=== PATIENT | male | born 1970 | race African-American/Black ===

== ENCOUNTER 2017-07-17 08:18 | Emergency (ER) | payer OTHER ==
[~2017-07-17] VITALS: Ht 177.8 cm; Wt 91.0 kg
[~2017-07-17 08:18] MED LIST: ALD50; ATOR20TA; CARV25TA47; DIGO0.12; DIGO0.25 PO; FURO-151; LOSA50TA3; POTA20TA82; WARF10TA21
[2017-07-17] MEDS ORDERED: SODIUM CHLORIDE 0.9% 1,000 ML IV ONE (09:30)
[2017-07-17] MEDS ORDERED: MECLIZINE 25MG TABLET PO ONE (09:30)
[2017-07-17 09:43] LABS: BASOPHILS % 0.6 % (0.0-2.0); EOSINOPHILS % 1.9 % (0.0-5.0); HEMOGLOBIN. 15.1 g/dL (14.0-18.0); LYMPHOCYTES % 23.8 % (20.0-50.0); MEAN CORPUSCULAR HEMOGLOBIN 31.8 pg (28.0-32.0); MEAN CORPUSCULAR VOLUME 92.8 fL (80.0-94.0); MEAN PLATELET VOLUME 7.6 fl (7.4-10.4); NEUTROPHILS % 59.7 % (40.0-76.0); PLATELET 128 x1000/uL (130-400); RED BLOOD CELL COUNT 4.74 mill/uL (4.7-6.1); RED CELL DISTRIBUTION WIDTH 13.8 % (11.6-14.6)
[2017-07-17 09:52] LABS: INR 2.8; PROTHROMBIN TIME 29.3 sec (9.4-11.6)
[2017-07-17 09:59] LABS: CARBON DIOXIDE 25 mEq/L (21-32); CHLORIDE 104 mEq/L (98-107); TROPONIN I < 0.02 ng/mL (0.00-0.04)
[2017-07-17 10:13] LABS: DIGOXIN 0.6 ng/mL (0.9-2.0)
[2017-07-17 12:27] VITALS: BP 106/66
== END 2017-07-17 12:53 | disposition home or self-care (01) ==
LOC: ER 10:13
DX: R42 Dizziness and giddiness (principal); I10 Essential (primary) hypertension; E78.00 Pure hypercholesterolemia, unspecified; Z79.01 Long term (current) use of anticoagulants
CPT/HCPCS: 36415; 71010; 80048; 80162; 84484; 85025; 85610; 93005; 96360; 99285; J7030; Z7610; J8597

== ENCOUNTER 2018-04-09 06:11 | Inpatient (IN) | payer OTHER ==
[2018-04-09] VITALS (7 sets, daily range): BP systolic 111–133; BP diastolic 73–93
[~2018-04-09] VITALS: Ht 177.8 cm; Wt 93.0 kg
[2018-04-09] MEDS ORDERED: DIGO125T82 PO (06:49)
[2018-04-09] MEDS ORDERED: RIVA10TA PO (06:49)
[2018-04-09] MEDS ORDERED: SACU1TAB PO (06:49)
[2018-04-09] MEDS ORDERED: TADA5TAB PO (06:49)
[2018-04-09 07:04] LABS: CHLORIDE 104 mEq/L (98-107); HEMATOCRIT 43.8 % (42.0-52.0); HEMOGLOBIN 15.2 g/dL (14.0-18.0); MEAN CORPUSCULAR HEMOGLOBIN 32.6 pg (28.0-32.0); MEAN CORPUSCULAR VOLUME 94.1 fL (80.0-94.0); PLATELET 106 x1000/uL (130-400); RED BLOOD CELL COUNT 4.66 mill/uL (4.7-6.1); RED CELL DISTRIBUTION WIDTH 13.7 % (11.6-14.6)
[2018-04-09 07:06] LABS: INR 1.3; PROTHROMBIN TIME 13.4 sec (9.4-11.6)
[2018-04-09] MEDS ORDERED: FENTANYL CITRATE/PF 50MCG/ML 2ML VIAL ONE ×2 (07:20→08:44)
[2018-04-09] MEDS ORDERED: NEOSTIGMINE METHYLSULFATE 1MG/ML 10 ML VIAL ONE (07:20)
[2018-04-09] MEDS ORDERED: MIDAZOLAM HCL 2 MG/2 ML VIAL ONE (07:20)
[2018-04-09] MEDS ORDERED: CEFAZOLIN SODIUM 1000MG/VIAL ONE (07:20)
[2018-04-09] MEDS ORDERED: PROPOFOL 200MG/20ML VIAL IV ONE (07:20)
[2018-04-09] MEDS ORDERED: ROCURONIUM BROMIDE 10MG/ML VIAL 5ML IV ONE ×2 (07:20→08:00)
[2018-04-09] MEDS ORDERED: GLYCOPYRROLATE 0.2 MG/ML 2ML VIAL ONE (07:20)
[2018-04-09] MEDS ORDERED: SUCCINYLCHOLINE CHLORIDE 200MG/10ML VIAL IV ONE (07:20)
[2018-04-09] MEDS ORDERED: ONDANSETRON HCL 4MG/2ML VIAL ONE ×2 (07:21→13:21)
[2018-04-09] MEDS ORDERED: EPHEDRINE SULFATE 50MG/ML VIAL ONE (07:21)
[2018-04-09] MEDS ORDERED: PHENYLEPHRINE HCL 10 MG/ML 1ML (IV VIAL) IV ONE ×2 (07:21→07:37)
[2018-04-09] MEDS ORDERED: GENTAMICIN/NS IRRIGATION 500 ML IR ONE (07:23)
[2018-04-09] MEDS ORDERED: GENTAMICIN SULF 40MG/ML 2ML VIAL ONE (07:23)
[2018-04-09] MEDS ORDERED: LIDOCAINE HCL 1% 20ML VIAL (Pyxis) INJ ONE (07:23)
[2018-04-09] MEDS ORDERED: IOHEXOL-300 100 ML BOTTLE ONE (07:36)
[2018-04-09] MEDS ORDERED: ETOMIDATE 2MG/ML 10ML VIAL IV ONE (07:37)
[2018-04-09] MEDS ORDERED: CEFAZOLIN 1000MG PREMIX 50 ML IV ONE ×2 (07:38→07:52)
[2018-04-09] MEDS ORDERED: ESMOLOL HCL 10MG/ML 10ML VIAL IV ONE (08:43)
[2018-04-09] MEDS: SPIRONOLACTONE 50MG TABLET PO SCH (09:00)
[2018-04-09] MEDS ORDERED: SODIUM CHLORIDE 0.9% 1,000 ML IV ONE (11:33)
[2018-04-09] MEDS ORDERED: HYDROMORPHONE HCL/PF 2MG/ML CPJ IV PRN (11:45)
[2018-04-09] MEDS: ONDANSETRON HCL 4MG/2ML VIAL IV PRN ×2 (12:54→13:20)
[2018-04-09] MEDS: HYDROCODONE/ACETAMINOPHEN 5/325MG TABLET PO PRN ×2 (15:21→21:22)
[2018-04-09] MEDS: LOSARTAN POTASSIUM 50 MG TABLET PO SCH (17:43)
[2018-04-09] MEDS ORDERED: DIGOXIN 125MCG TABLET PO SCH (18:00)
[2018-04-09] MEDS ORDERED: ATORVASTATIN CALCIUM 20MG TABLET PO SCH (21:00)
[2018-04-09] MEDS: CARVEDILOL 25MG TABLET PO SCH (21:21)
[2018-04-10] VITALS (9 sets, daily range): BP systolic 97–135; BP diastolic 60–96
[2018-04-10 07:17] LABS: BASOPHILS % 0.4 % (0.0-2.0); EOSINOPHILS % 0.8 % (0.0-5.0); HEMATOCRIT. 41.1 % (42.0-52.0); LYMPHOCYTES % 9.7 % (20.0-50.0); MEAN CORPUSCULAR HEMOGLOBIN 32.3 pg (28.0-32.0); MEAN CORPUSCULAR VOLUME 94.9 fL (80.0-94.0); MEAN PLATELET VOLUME 8.2 fl (7.4-10.4); NEUTROPHILS % 80.1 % (40.0-76.0); PLATELET 86 x1000/uL (130-400); RED BLOOD CELL COUNT 4.33 mill/uL (4.7-6.1); RED CELL DISTRIBUTION WIDTH 13.8 % (11.6-14.6)
[2018-04-10 07:31] LABS: CHLORIDE 104 mEq/L (98-107)
[2018-04-10] MEDS: SPIRONOLACTONE 50MG TABLET PO SCH (08:35)
[2018-04-10] MEDS: LOSARTAN POTASSIUM 50 MG TABLET PO SCH (08:36)
[2018-04-10] MEDS: CARVEDILOL 25MG TABLET PO SCH (08:36)
[2018-04-10] MEDS ORDERED: FUROSEMIDE 40MG TABLET PO SCH (09:00)
[2018-04-10] MEDS ORDERED: POTASSIUM CHLORIDE 20MEQ TABLET SR PO SCH (09:00)
[2018-04-10] MEDS ORDERED: RIVA20TA MT (12:06)
== END 2018-04-10 12:58 | disposition home or self-care (01) | DRG 224 ==
LOC: CCL 06:11 → 3WST 06:12
PROVIDERS: ADMIT Internal Medicine Clinical Cardiac Electrophysiology; ATTEND Internal Medicine Clinical Cardiac Electrophysiology
PROC: 02HL3KZ Insertion of Defibrillator Lead into Left Ventricle, Percutaneous Approach (ICD-10-PCS; 2018-04-09)
PROC: 0JH608Z Insertion of Defibrillator Generator into Chest Subcutaneous Tissue and Fascia, Open Approach (ICD-10-PCS; 2018-04-09)
PROC: 4A023N6 Measurement of Cardiac Sampling and Pressure, Right Heart, Percutaneous Approach (ICD-10-PCS; 2018-04-09)
PROC: 02H43KZ Insertion of Defibrillator Lead into Coronary Vein, Percutaneous Approach (ICD-10-PCS; 2018-04-09)
PROC: 0JPT0PZ Removal of Cardiac Rhythm Related Device from Trunk Subcutaneous Tissue and Fascia, Open Approach (ICD-10-PCS; 2018-04-09)
PROC: 4A033BC Measurement of Arterial Pressure, Coronary, Percutaneous Approach (ICD-10-PCS; 2018-04-09)
PROC: B5171ZZ Fluoroscopy of Left Subclavian Vein using Low Osmolar Contrast (ICD-10-PCS; principal; 2018-04-09 07:10)
DX: I47.2 Ventricular tachycardia (principal); I50.23 Acute on chronic systolic (congestive) heart failure; I42.0 Dilated cardiomyopathy; I87.1 Compression of vein; I27.29 Other secondary pulmonary hypertension; I44.7 Left bundle-branch block, unspecified; Z79.899 Other long term (current) drug therapy; Z79.01 Long term (current) use of anticoagulants
CPT/HCPCS: 33225; 33264; 36415; 71045; 75820; 80048; 85025; 85027; 85610; 85730; 93005; 93451; 93641; A4565; C1758; C1769; C1887; C1892; C1893; C1900; J0330; J0690; J1580; J1644; J2250; J2370; J2405; J2704; J2710; J3010; J3490; J7030; J7040; J7042; J7050; Q9967

== ENCOUNTER 2019-02-19 09:16 | Emergency (ER) | payer OTHER ==
[~2019-02-19] VITALS: Ht 177.8 cm; Wt 91.0 kg
[~2019-02-19 09:16] MED LIST changes: +DIGO125T82 PO; +SACU1TAB PO; +TADA5TAB PO; -WARF10TA21
[2019-02-19 11:25] VITALS: BP 102/72
== END 2019-02-19 11:35 | disposition home or self-care (01) ==
LOC: ER 09:16
DX: H10.9 Unspecified conjunctivitis (principal); I10 Essential (primary) hypertension
CPT/HCPCS: 99283

== ENCOUNTER 2020-12-04 09:07 | Emergency (ER) | payer OTHER ==
[~2020-12-04] VITALS: Ht 177.8 cm; Wt 86.4 kg
[~2020-12-04 09:07] MED LIST changes: +DIGO125T PO; -DIGO125T82 PO
[2020-12-04 09:37] VITALS: BP 112/98
[2020-12-04 10:14] LABS: BASOPHILS % 1.7 % (0.0-2.0); EOSINOPHILS % 2.4 % (0.0-5.0); HEMATOCRIT. 38.2 % (42.0-52.0); HEMOGLOBIN. 12.6 g/dL (14.0-18.0); LYMPHOCYTES % 21.9 % (20.0-50.0); MEAN CORPUSCULAR HEMOGLOBIN 31.9 pg (28.0-32.0); MONOCYTES % 13.1 % (2.0-8.0); NEUTROPHILS % 60.9 % (40.0-76.0); PLATELET 94 x1000/uL (130-400); RED BLOOD CELL COUNT 3.94 mill/uL (4.7-6.1); RED CELL DISTRIBUTION WIDTH 15.9 % (11.6-14.6)
[2020-12-04 10:21] LABS: CHLORIDE 105 mEq/L (98-107)
== END 2020-12-04 13:25 | disposition home or self-care (01) ==
LOC: ER 09:14
DX: J06.9 Acute upper respiratory infection, unspecified (principal); I50.9 Heart failure, unspecified; Z95.0 Presence of cardiac pacemaker; Z79.899 Other long term (current) drug therapy
CPT/HCPCS: 36415; 71045; 80053; 85025; 93005; 99285

== ENCOUNTER 2021-09-19 10:16 | Inpatient (IN) | payer OTHER ==
[~2021-09-19] VITALS: Ht 177.8 cm; Wt 93.6 kg
[~2021-09-19 10:16] MED LIST changes: -ALD50; +ALD50 PO; -ATOR20TA; +ATOR20TA PO; -CARV25TA47; +CARV25TA47 PO; -DIGO0.12; -DIGO0.25 PO; -FURO-151; +FURO-151 PO; -LOSA50TA3; +LOSA50TA3 PO; +METR500T MT; -POTA20TA82; +POTA20TA82 PO; +PROT40 MT; +RIVA10TA PO
[2021-09-19] MEDS ORDERED: SODIUM CHLORIDE 0.9% 1000ML BAG (SEPSIS BOLUS) IV ONE (11:00)
[2021-09-19] MEDS ORDERED: METRONIDAZOLE 500 MG PREMIX 100 ML IV ONE (11:00)
[2021-09-19] MEDS ORDERED: METRONIDAZOLE 500MG TABLET PO NR (11:15)
[2021-09-19 11:31] LABS: BASOPHILS % 1.1 % (0.0-2.0); EOSINOPHILS % 1.2 % (0.0-5.0); HEMATOCRIT. 42.5 % (42.0-52.0); HEMOGLOBIN. 13.7 g/dL (14.0-18.0); LYMPHOCYTES % 20.5 % (20.0-50.0); MEAN CORPUSCULAR VOLUME 98.9 fL (80.0-94.0); MEAN PLATELET VOLUME 8.9 fl (7.4-10.4); MONOCYTES % 10.1 % (2.0-8.0); NEUTROPHILS % 67.1 % (40.0-76.0); PLATELET 86 x1000/uL (130-400); RED BLOOD CELL COUNT 4.29 mill/uL (4.7-6.1); RED CELL DISTRIBUTION WIDTH 17.8 % (11.6-14.6)
[2021-09-19 11:42] LABS: CHLORIDE 110 mEq/L (98-107)
[2021-09-19] MEDS ORDERED: CEFTRIAXONE 1 G PREMIX 50 ML IV ONE (14:15)
[2021-09-19] MEDS ORDERED: MAGNESIUM/ALUMINUM HYDROXIDE/SIMETHICONE 30ML UDC PO PRN (15:45)
[2021-09-19] MEDS ORDERED: HYDROCODONE/ACETAMINOPHEN 5/325MG TABLET PO PRN (15:45)
[2021-09-19] MEDS ORDERED: DOCUSATE SODIUM 100MG CAPSULE PO PRN (15:45)
[2021-09-19] MEDS ORDERED: CLONIDINE 0.1MG TABLET PO PRN (15:45)
[2021-09-19] MEDS ORDERED: ONDANSETRON HCL 4MG/2ML INJ IV PRN (15:45)
[2021-09-19] MEDS ORDERED: DIPHENHYDRAMINE 50MG/ML VIAL IV PRN (15:45)
[2021-09-19] MEDS ORDERED: ACETAMINOPHEN 650MG SUPP PR PRN (15:45)
[2021-09-19] MEDS ORDERED: IPRATROPIUM/ALBUTEROL 0.5-3(2.5)MG/3ML NEB NEB PRN (15:45)
[2021-09-19] MEDS ORDERED: LORAZEPAM 0.5MG TABLET PO PRN (15:45)
[2021-09-19] MEDS ORDERED: ACETAMINOPHEN 325MG TABLET PO PRN (15:45)
[2021-09-19] MEDS ORDERED: NA PHOS,M-B/NA PHOS,DI-BA ENEMA 118ML PR PRN (15:45)
[2021-09-19] MEDS ORDERED: MORPHINE SULFATE 2 MG/ML CPJ (NOT FOR IM USE) IV PRN (15:45)
[2021-09-19 17:18] LABS: CLARITY URINE CLEAR (CLEAR); COLOR URINE ORANGE (YELLOW); KETONES URINE NEGATIVE (NEGATIVE); LEUKOCYTE ESTERASE URINE 1+ (NEGATIVE); NITRITE URINE POSITIVE (NEGATIVE); OCCULT BLOOD URINE NEGATIVE (NEGATIVE); PROTEIN URINE 3+ (NEGATIVE)
[2021-09-19] MEDS ORDERED: LEVOFLOXACIN 500MG PREMIX 100 ML IV SCH (18:30)
[2021-09-19 18:33] LABS: INR 2.3; PROTHROMBIN TIME 23.2 sec (9.6-11.0)
[2021-09-19] MEDS: DEXT 5%/0.45% NACL 1000ML 1,000 ML IV SCH (19:14)
[2021-09-19] MEDS: PANTOPRAZOLE SODIUM 40 MG/VIAL IV SCH (19:14)
[2021-09-19 21:53] VITALS: BP 124/55
[2021-09-19] MEDS ORDERED: METRONIDAZOLE 500 MG PREMIX 100 ML IV SCH (22:00)
[2021-09-19] MEDS: METRONIDAZOLE 500MG TABLET PO SCH (22:49)
[2021-09-19] MEDS: GUAIFENESIN 200MG/10ML SUGAR FREE UDC PO PRN (22:49)
[2021-09-19] MEDS ORDERED: NALOXONE HCL 0.4 MG/ML 1ML VIAL IV PRN (23:00)
[2021-09-19 23:39] VITALS: BP 118/84
[2021-09-20] VITALS (10 sets, daily range): BP systolic 92–122; BP diastolic 59–89
[2021-09-20 03:41] LABS: *AMPHETAMINES SCREEN URINE NEGATIVE (NEGATIVE); *BARBITURATES SCREEN URINE NEGATIVE (NEGATIVE); *BENZODIAZEPINES SCREEN URINE NEGATIVE (NEGATIVE); *COCAINE SCREEN URINE NEGATIVE (NEGATIVE); CANNABINOID URINE SCREEN NEGATIVE (NEGATIVE); METHADONE URINE SCREEN NEGATIVE (NEGATIVE); OPIATES URINE SCREEN PRESUMTIVE POSITIVE (NEGATIVE)
[2021-09-20 03:49] LABS: PHENCYCLIDINE URINE SCREEN NEGATIVE (NEGATIVE)
[2021-09-20] MEDS: METRONIDAZOLE 500MG TABLET PO SCH ×3 (05:02→21:03)
[2021-09-20 07:27] LABS: BASOPHILS % 1.1 % (0.0-2.0); EOSINOPHILS % 1.7 % (0.0-5.0); HEMATOCRIT. 37.4 % (42.0-52.0); HEMOGLOBIN. 12.2 g/dL (14.0-18.0); LYMPHOCYTES % 18.2 % (20.0-50.0); MEAN CORPUSCULAR HEMOGLOBIN 32.2 pg (28.0-32.0); MEAN CORPUSCULAR VOLUME 98.6 fL (80.0-94.0); MONOCYTES % 14.7 % (2.0-8.0); NEUTROPHILS % 64.3 % (40.0-76.0); PLATELET 83 x1000/uL (130-400); RED BLOOD CELL COUNT 3.79 mill/uL (4.7-6.1); RED CELL DISTRIBUTION WIDTH 16.8 % (11.6-14.6)
[2021-09-20 07:42] LABS: CHLORIDE 110 mEq/L (98-107)
[2021-09-20] MEDS: PANTOPRAZOLE SODIUM 40 MG/VIAL IV SCH (09:12)
[2021-09-20] MEDS: DEXT 5%/0.45% NACL 1000ML 1,000 ML IV SCH (09:12)
[2021-09-20] MEDS ORDERED: PHYTONADIONE 10MG/ML AMP SUBCUT NR (12:15)
[2021-09-20 12:55] LABS: INR 2.3; PROTHROMBIN TIME 22.9 sec (9.6-11.0)
[2021-09-20 12:58] LABS: T4 FREE 1.48 ng/dL (0.76-1.46)
[2021-09-20] MEDS: SPIRONOLACTONE 25MG TABLET PO SCH (16:17)
[2021-09-20] MEDS: FUROSEMIDE 40MG/4ML VIAL IVP SCH (16:17)
[2021-09-20] MEDS: GUAIFENESIN 200MG/10ML SUGAR FREE UDC PO PRN (20:12)
[2021-09-20] MEDS: LEVOFLOXACIN 500MG PREMIX 100 ML IV SCH (21:03)
[2021-09-20 21:22] LABS: HEMATOCRIT 39.6 % (42.0-52.0); HEMOGLOBIN 13.1 g/dL (14.0-18.0)
[2021-09-20 21:31] LABS: INR 2.2; PROTHROMBIN TIME 22.2 sec (9.6-11.0)
[2021-09-21] VITALS (8 sets, daily range): BP systolic 92–138; BP diastolic 59–86
[2021-09-21 01:19] LABS: HEMATOCRIT 36.7 % (42.0-52.0)
[2021-09-21 01:32] LABS: FIBRINOGEN < 172 mg/dL (200-400); INR 2.2; PROTHROMBIN TIME 22.6 sec (9.6-11.0)
[2021-09-21] MEDS: METRONIDAZOLE 500MG TABLET PO SCH ×3 (05:08→20:48)
[2021-09-21 07:16] LABS: INR 2.3; PROTHROMBIN TIME 22.7 sec (9.6-11.0)
[2021-09-21 07:36] LABS: HEMATOCRIT. 37.9 % (42.0-52.0); HEMOGLOBIN. 12.5 g/dL (14.0-18.0); MEAN CORPUSCULAR HEMOGLOBIN 32.5 pg (28.0-32.0); MEAN CORPUSCULAR VOLUME 98.6 fL (80.0-94.0); MEAN PLATELET VOLUME 8.9 fl (7.4-10.4); PLATELET 81 x1000/uL (130-400); RED BLOOD CELL COUNT 3.84 mill/uL (4.7-6.1); RED CELL DISTRIBUTION WIDTH 17.2 % (11.6-14.6)
[2021-09-21] MEDS: SPIRONOLACTONE 25MG TABLET PO SCH (09:00)
[2021-09-21] MEDS: PANTOPRAZOLE SODIUM 40 MG/VIAL IV SCH (09:19)
[2021-09-21] MEDS: FUROSEMIDE 40MG/4ML VIAL IVP SCH ×2 (09:19→09:29)
[2021-09-21] MEDS: PHYTONADIONE 10MG/ML AMP SUBCUT SCH (09:20)
[2021-09-21] MEDS ORDERED: CEFTRIAXONE 1 G PREMIX 50 ML IV SCH (10:15)
[2021-09-21] MEDS ORDERED: CEFTRIAXONE 1,000 MG in DEXTROSE 5% WATER 50 ML IV SCH (12:00)
[2021-09-21 17:51] LABS: PLATELET ESTIMATE DECREASED
[2021-09-21] MEDS: LEVOFLOXACIN 500MG PREMIX 100 ML IV SCH (20:48)
[2021-09-22] VITALS: BP 110/63
[2021-09-22 04:00] VITALS: BP 141/89
[2021-09-22] MEDS: METRONIDAZOLE 500MG TABLET PO SCH ×3 (05:12→20:35)
[2021-09-22 07:23] LABS: HEMATOCRIT. 36.9 % (42.0-52.0); HEMOGLOBIN. 12.2 g/dL (14.0-18.0); MEAN CORPUSCULAR HEMOGLOBIN 32.5 pg (28.0-32.0); MEAN CORPUSCULAR VOLUME 98.5 fL (80.0-94.0); MEAN PLATELET VOLUME 8.8 fl (7.4-10.4); PLATELET 77 x1000/uL (130-400); RED BLOOD CELL COUNT 3.75 mill/uL (4.7-6.1); RED CELL DISTRIBUTION WIDTH 17.7 % (11.6-14.6)
[2021-09-22 07:34] LABS: CHLORIDE 107 mEq/L (98-107); INR 2.4
[2021-09-22 08:00] VITALS: BP 111/70
[2021-09-22] MEDS: PANTOPRAZOLE SODIUM 40 MG/VIAL IV SCH (09:45)
[2021-09-22] MEDS: PHYTONADIONE 10MG/ML AMP SUBCUT SCH (09:46)
[2021-09-22] MEDS: SPIRONOLACTONE 25MG TABLET PO SCH (09:46)
[2021-09-22] MEDS ORDERED: NAPHAZOLINE HCL/PHENIR MAL OPHTH SOLN 15ML BOTHEYE PRN (11:45)
[2021-09-22 12:00] VITALS: BP 127/78
[2021-09-22] MEDS ORDERED: PHYTONADIONE 10 MG in DEXTROSE 5% WATER 49 ML IV ONE (13:00)
[2021-09-22 14:47] LABS: PLATELET ESTIMATE DECREASED
[2021-09-22 16:00] VITALS: BP 137/67
[2021-09-22] MEDS: GUAIFENESIN 200MG/10ML SUGAR FREE UDC PO PRN (18:18)
[2021-09-22 20:00] VITALS: BP 101/64
[2021-09-22] MEDS: LEVOFLOXACIN 500MG PREMIX 100 ML IV SCH (20:35)
[2021-09-23] VITALS (18 sets, daily range): BP systolic 103–122; BP diastolic 73–86
[2021-09-23] MEDS: METRONIDAZOLE 500MG TABLET PO SCH ×3 (04:58→20:49)
[2021-09-23 06:18] LABS: INR 2.1; PROTHROMBIN TIME 21.4 sec (9.6-11.0)
[2021-09-23 06:26] LABS: BASOPHILS % 0.9 % (0.0-2.0); EOSINOPHILS % 0.5 % (0.0-5.0); HEMATOCRIT. 36.7 % (42.0-52.0); HEMOGLOBIN. 12.2 g/dL (14.0-18.0); LYMPHOCYTES % 14.2 % (20.0-50.0); MEAN CORPUSCULAR HEMOGLOBIN 32.9 pg (28.0-32.0); MEAN CORPUSCULAR VOLUME 99.2 fL (80.0-94.0); MEAN PLATELET VOLUME 9.4 fl (7.4-10.4); MONOCYTES % 12.5 % (2.0-8.0); NEUTROPHILS % 71.9 % (40.0-76.0); PLATELET 76 x1000/uL (130-400); RED CELL DISTRIBUTION WIDTH 17.5 % (11.6-14.6)
[2021-09-23 06:47] LABS: CHLORIDE 107 mEq/L (98-107)
[2021-09-23] MEDS: SPIRONOLACTONE 25MG TABLET PO SCH (09:00)
[2021-09-23] MEDS: PANTOPRAZOLE 40MG DR TABLET PO SCH (09:00)
[2021-09-23] MEDS: PHYTONADIONE 10MG/ML AMP SUBCUT SCH (09:59)
[2021-09-23] MEDS: FUROSEMIDE 40MG/4ML VIAL IVP SCH (09:59)
[2021-09-23] MEDS: GUAIFENESIN 200MG/10ML SUGAR FREE UDC PO PRN (15:45)
[2021-09-23] MEDS: LEVOFLOXACIN 500MG PREMIX 100 ML IV SCH (20:50)
[2021-09-24] VITALS (8 sets, daily range): BP systolic 89–117; BP diastolic 58–84
[2021-09-24] MEDS: METRONIDAZOLE 500MG TABLET PO SCH ×3 (04:56→20:18)
[2021-09-24 05:02] LABS: CHLORIDE 106 mEq/L (98-107)
[2021-09-24 05:04] LABS: INR 2.1; PROTHROMBIN TIME 21.6 sec (9.6-11.0)
[2021-09-24 05:44] LABS: BASOPHILS % 0.7 % (0.0-2.0); EOSINOPHILS % 0.6 % (0.0-5.0); HEMATOCRIT. 38.1 % (42.0-52.0); HEMOGLOBIN. 12.6 g/dL (14.0-18.0); LYMPHOCYTES % 14.5 % (20.0-50.0); MEAN CORPUSCULAR HEMOGLOBIN 32.8 pg (28.0-32.0); MEAN CORPUSCULAR VOLUME 99.4 fL (80.0-94.0); MEAN PLATELET VOLUME 8.9 fl (7.4-10.4); NEUTROPHILS % 72.2 % (40.0-76.0); PLATELET 73 x1000/uL (130-400); RED BLOOD CELL COUNT 3.83 mill/uL (4.7-6.1); RED CELL DISTRIBUTION WIDTH 17.8 % (11.6-14.6)
[2021-09-24] MEDS: PHYTONADIONE 10MG/ML AMP SUBCUT SCH (08:54)
[2021-09-24] MEDS: FUROSEMIDE 40MG/4ML VIAL IVP SCH (08:54)
[2021-09-24] MEDS: PANTOPRAZOLE 40MG DR TABLET PO SCH (09:00)
[2021-09-24] MEDS: SPIRONOLACTONE 25MG TABLET PO SCH (09:00)
[2021-09-24 10:48] LABS: INR 2.1
[2021-09-24 17:07] LABS: OVA & PARASITE EXAM Final report (.)
[2021-09-25] VITALS (11 sets, daily range): BP systolic 102–114; BP diastolic 73–87
[2021-09-25] MEDS ORDERED: LIDOCAINE HCL 1% 10 MG/ML 10ML VIAL ONE (07:49)
[2021-09-25] MEDS ORDERED: SODIUM BICARBONATE 4% (2.4MEQ) 5ML VIAL IV ONE (07:49)
[2021-09-25 07:56] LABS: HEMATOCRIT. 37.5 % (42.0-52.0); HEMOGLOBIN. 11.8 g/dL (14.0-18.0); MEAN CORPUSCULAR HEMOGLOBIN 32.2 pg (28.0-32.0); MEAN CORPUSCULAR VOLUME 102.2 fL (80.0-94.0); MEAN PLATELET VOLUME 9.9 fl (7.4-10.4); PLATELET 78 x1000/uL (130-400); RED BLOOD CELL COUNT 3.67 mill/uL (4.7-6.1); RED CELL DISTRIBUTION WIDTH 18.6 % (11.6-14.6)
[2021-09-25 08:58] LABS: INR 2.5; PROTHROMBIN TIME 25.4 sec (9.6-11.0)
[2021-09-25] MEDS: FUROSEMIDE 40MG/4ML VIAL IVP SCH (09:00)
[2021-09-25] MEDS: SPIRONOLACTONE 25MG TABLET PO SCH (09:28)
[2021-09-25] MEDS: PANTOPRAZOLE 40MG DR TABLET PO SCH (09:28)
[2021-09-25 09:38] LABS: NUCLEATED RED BLOOD CELLS 2 /100 WBC; PLATELET ESTIMATE DECREASED
[2021-09-25] MEDS ORDERED: LEVO250T58 MT (12:08)
[2021-09-25 13:07] LABS: ATYPICAL pANCA <1:20 titer (Neg:<1:20); SACCHAROMYCES CEREVISIAE IGG 35.4 Units (0.0-24.9); SACCHAROMYCES CEREVISIAE IGM 35.6 Units (0.0-24.9)
== END 2021-09-25 13:15 | disposition home or self-care (01) | DRG 371 ==
LOC: ER 10:16 → MICUSO 13:09 → EDBEDREQ 13:23 → EDBEDREQTM 13:23 → 8WST 22:34
PROVIDERS: ADMIT Internal Medicine; ATTEND Internal Medicine
PROC: 30233K1 Transfusion of Nonautologous Frozen Plasma into Peripheral Vein, Percutaneous Approach (ICD-10-PCS; principal; 2021-09-20)
PROC: 0W9G3ZZ Drainage of Peritoneal Cavity, Percutaneous Approach (ICD-10-PCS; 2021-09-25)
DX: A04.72 Enterocolitis due to Clostridium difficile, not specified as recurrent (principal); N17.0 Acute kidney failure with tubular necrosis; D61.818 Other pancytopenia; D68.9 Coagulation defect, unspecified; E87.2 Acidosis; I31.3 Pericardial effusion (noninflammatory); I42.9 Cardiomyopathy, unspecified; R65.10 Systemic inflammatory response syndrome (SIRS) of non-infectious origin without acute organ dysfunction; K70.31 Alcoholic cirrhosis of liver with ascites; K63.89 Other specified diseases of intestine; I11.0 Hypertensive heart disease with heart failure; I25.10 Atherosclerotic heart disease of native coronary artery without angina pectoris; I50.9 Heart failure, unspecified; Z20.822 Contact with and (suspected) exposure to COVID-19; N50.89 Other specified disorders of the male genital organs; Z90.49 Acquired absence of other specified parts of digestive tract; Z79.01 Long term (current) use of anticoagulants; Z79.899 Other long term (current) drug therapy; Z95.810 Presence of automatic (implantable) cardiac defibrillator
CPT/HCPCS: 36415; 49083; 71045; 74176; 76705; 76870; 80048; 80053; 80076; 80305; 81003; 82040; 82140; 82962; 83605; 83880; 84145; 84439; 84443; 84481; 84484; 85014; 85018; 85025; 85049; 85384; 86256; 86592; 86671; 86850; 86900; 86927; 87015; 87045; 87177; 87209; 87426; 87427; 87449; 87493; 88108; 88312; 89055; 93005; 93970; 93976; 99291; C1893; C9113; J0696; J1940; J1956; J3430; J3490; J7030; J7040; J7060; P9017

== ENCOUNTER 2021-10-03 12:18 | Inpatient (IN) | payer OTHER ==
[~2021-10-03] VITALS: Ht 177.8 cm; Wt 89.9 kg
[~2021-10-03 12:18] MED LIST changes: -ATOR20TA PO; +LEVO250T58 MT; -METR500T MT
[2021-10-03] MEDS ORDERED: FUROSEMIDE 40MG/4ML VIAL IV ONE (12:45)
[2021-10-03 13:30] LABS: CHLORIDE 101 mEq/L (98-107)
[2021-10-03 14:03] LABS: HEMATOCRIT. 44.1 % (42.0-52.0); HEMOGLOBIN. 14.2 g/dL (14.0-18.0); MEAN CORPUSCULAR HEMOGLOBIN 32.4 pg (28.0-32.0); MEAN CORPUSCULAR VOLUME 100.6 fL (80.0-94.0); MEAN PLATELET VOLUME 8.9 fl (7.4-10.4); PLATELET 74 x1000/uL (130-400); RED BLOOD CELL COUNT 4.39 mill/uL (4.7-6.1); RED CELL DISTRIBUTION WIDTH 18.7 % (11.6-14.6)
[2021-10-03 14:21] LABS: PLATELET ESTIMATE DECREASED
[2021-10-03] MEDS ORDERED: LORAZEPAM 0.5MG TABLET PO PRN (17:30)
[2021-10-03] MEDS ORDERED: IPRATROPIUM/ALBUTEROL 0.5-3(2.5)MG/3ML NEB NEB PRN (17:30)
[2021-10-03] MEDS ORDERED: ONDANSETRON HCL 4MG/2ML INJ IV PRN (17:30)
[2021-10-03] MEDS ORDERED: DOCUSATE SODIUM 100MG CAPSULE PO PRN (17:30)
[2021-10-03] MEDS ORDERED: MAGNESIUM/ALUMINUM HYDROXIDE/SIMETHICONE 30ML UDC PO PRN (17:30)
[2021-10-03] MEDS ORDERED: ACETAMINOPHEN 650MG SUPP PR PRN (17:30)
[2021-10-03] MEDS ORDERED: HYDROCODONE/ACETAMINOPHEN 5/325MG TABLET PO PRN (17:30)
[2021-10-03] MEDS ORDERED: CLONIDINE 0.1MG TABLET PO PRN (17:30)
[2021-10-03] MEDS ORDERED: NA PHOS,M-B/NA PHOS,DI-BA ENEMA 118ML PR PRN (17:30)
[2021-10-03] MEDS ORDERED: DIPHENHYDRAMINE 50MG/ML VIAL IV PRN (17:30)
[2021-10-03 17:51] LABS: *BENZODIAZEPINES SCREEN URINE NEGATIVE (NEGATIVE); PHENCYCLIDINE URINE SCREEN NEGATIVE (NEGATIVE)
[2021-10-03 17:52] LABS: *AMPHETAMINES SCREEN URINE NEGATIVE (NEGATIVE); *BARBITURATES SCREEN URINE NEGATIVE (NEGATIVE); *COCAINE SCREEN URINE NEGATIVE (NEGATIVE); CANNABINOID URINE SCREEN NEGATIVE (NEGATIVE); METHADONE URINE SCREEN NEGATIVE (NEGATIVE); OPIATES URINE SCREEN NEGATIVE (NEGATIVE)
[2021-10-03] MEDS ORDERED: FUROSEMIDE 40MG/4ML VIAL IV SCH (18:11)
[2021-10-03] MEDS ORDERED: METRONIDAZOLE 500 MG PREMIX 100 ML IV SCH (18:45)
[2021-10-03 20:00] VITALS: BP 136/78
[2021-10-03 22:09] LABS: INR 2.8; PROTHROMBIN TIME 27.7 sec (9.6-11.0)
[2021-10-03 22:17] LABS: CREATINE KINASE 230 IU/L (39-308)
[2021-10-03 22:18] LABS: CREATINE KINASE MB FRACTION 3.9 ng/mL (0.5-3.6)
[2021-10-03] MEDS: LEVOFLOXACIN 500MG PREMIX 100 ML IV SCH (22:45)
[2021-10-03] MEDS: METRONIDAZOLE 500MG TABLET PO SCH (22:45)
[2021-10-04] VITALS (11 sets, daily range): BP systolic 90–137; BP diastolic 44–111
[2021-10-04] MEDS: METRONIDAZOLE 500MG TABLET PO SCH ×3 (05:02→21:04)
[2021-10-04] MEDS: PANTOPRAZOLE 40MG DR TABLET PO SCH (07:50)
[2021-10-04 07:56] LABS: HEMATOCRIT. 42.2 % (42.0-52.0); HEMOGLOBIN. 13.7 g/dL (14.0-18.0); MEAN CORPUSCULAR VOLUME 102.1 fL (80.0-94.0); MEAN PLATELET VOLUME 9.7 fl (7.4-10.4); PLATELET 81 x1000/uL (130-400); RED BLOOD CELL COUNT 4.13 mill/uL (4.7-6.1); RED CELL DISTRIBUTION WIDTH 18.6 % (11.6-14.6)
[2021-10-04 07:58] LABS: CHLORIDE 101 mEq/L (98-107)
[2021-10-04 08:17] LABS: CREATINE KINASE 291 IU/L (39-308)
[2021-10-04 08:20] LABS: CREATINE KINASE MB FRACTION 4.5 ng/mL (0.5-3.6)
[2021-10-04] MEDS: ASPIRIN 81MG EC TABLET PO SCH (08:59)
[2021-10-04 12:17] LABS: CLARITY URINE CLEAR (CLEAR); COLOR URINE ORANGE (YELLOW); KETONES URINE NEGATIVE (NEGATIVE); LEUKOCYTE ESTERASE URINE TRACE (NEGATIVE); NITRITE URINE POSITIVE (NEGATIVE); OCCULT BLOOD URINE NEGATIVE (NEGATIVE); PROTEIN URINE 1+ (NEGATIVE); SPECIFIC GRAVITY URINE 1.022 (1.005-1.030); UROBILINOGEN URINE 0.2 E.U./dL (0.2-1.0)
[2021-10-04] MEDS: IPRATROPIUM/ALBUTEROL 0.5-3(2.5)MG/3ML NEB HHN SCH ×2 (14:21→21:18)
[2021-10-04] MEDS: PHYTONADIONE 10MG/ML AMP SUBCUT SCH ×2 (15:03→15:12)
[2021-10-04] MEDS: GUAIFENESIN 200MG/10ML SUGAR FREE UDC PO PRN (17:03)
[2021-10-04 17:19] LABS: PLATELET ESTIMATE DECREASED
[2021-10-04] MEDS: SPIRONOLACTONE 25MG TABLET PO SCH (19:12)
[2021-10-04] MEDS: LEVOFLOXACIN 500MG PREMIX 100 ML IV SCH (20:49)
[2021-10-04] MEDS: FUROSEMIDE 40MG/4ML VIAL IV SCH (21:05)
[2021-10-05] VITALS (10 sets, daily range): BP systolic 90–133; BP diastolic 45–98
[2021-10-05] MEDS: PANTOPRAZOLE 40MG DR TABLET PO SCH (06:42)
[2021-10-05] MEDS: FUROSEMIDE 40MG/4ML VIAL IV SCH ×3 (06:43→22:59)
[2021-10-05] MEDS: METRONIDAZOLE 500MG TABLET PO SCH ×3 (06:43→21:33)
[2021-10-05 07:18] LABS: HEMATOCRIT. 36.5 % (42.0-52.0); HEMOGLOBIN. 12.3 g/dL (14.0-18.0); MEAN CORPUSCULAR HEMOGLOBIN 33.1 pg (28.0-32.0); MEAN CORPUSCULAR VOLUME 98.1 fL (80.0-94.0); MEAN PLATELET VOLUME 8.9 fl (7.4-10.4); PLATELET 62 x1000/uL (130-400); RED BLOOD CELL COUNT 3.72 mill/uL (4.7-6.1); RED CELL DISTRIBUTION WIDTH 17.6 % (11.6-14.6)
[2021-10-05 07:22] LABS: CHLORIDE 100 mEq/L (98-107); PROTHROMBIN TIME 20.3 sec (9.6-11.0)
[2021-10-05] MEDS ORDERED: LIDOCAINE HCL 1% 10 MG/ML 10ML VIAL ONE (08:13)
[2021-10-05] MEDS: ASPIRIN 81MG EC TABLET PO SCH (09:00)
[2021-10-05] MEDS: IPRATROPIUM/ALBUTEROL 0.5-3(2.5)MG/3ML NEB HHN SCH ×2 (09:25→21:23)
[2021-10-05] MEDS: PHYTONADIONE 10MG/ML AMP SUBCUT SCH (10:38)
[2021-10-05] MEDS: SPIRONOLACTONE 25MG TABLET PO SCH (10:38)
[2021-10-05] MEDS ORDERED: NALOXONE HCL 0.4MG/ML VIAL IV PRN (13:15)
[2021-10-05 14:05] LABS: PLATELET ESTIMATE DECREASED
[2021-10-05 14:21] LABS: BG BASE EXCESS -2.4 mmol/L (-2.0-2.0); BG CARBOXYHEMOGLOBIN 1.1 % (0.5-1.5); BG DEOXYHEMOGLOBIN 2.6 % (0.0-5.0); BG FRACTION INSPIRED OXYGEN 21; BG HCO3 ACT 18.9 mmol/L (22.0-26.0); BG METHEMOGLOBIN 0.1 % (0.0-1.5); BG OXYGEN SATURATION 97.4 % (92.0-98.5); BG OXYHEMOGLOBIN 96.2 % (94.0-97.0); BG PCO2 24.5 mmHg (35.0-45.0); BG PH 7.506 (7.350-7.450); BG PO2 91.3 mmHg (75.0-100.0); BG SAMPLE SITE RIGHT RADIAL; BG TOTAL HEMOGLOBIN 13.7 g/dL (12.0-18.0); BG TOTAL RESPIRATORY RATE 22 b/min; BG VENT MODE ROOM AIR
[2021-10-05] MEDS: LEVOFLOXACIN 500MG TABLET PO SCH (15:59)
[2021-10-05] MEDS ORDERED: SODIUM CHLORIDE 0.9% 1,000 ML IV NR (21:30)
[2021-10-05] MEDS ORDERED: IOHEXOL-350 100 ML BOTTLE ONE (23:25)
[2021-10-05] MEDS ORDERED: HEPARIN 5000 UNITS/ML VIAL IV PRN (23:45)
[2021-10-05] MEDS ORDERED: HEPARIN 25,000 UNITS PREMIX 250 ML IV PRN (23:45)
[2021-10-06] VITALS (12 sets, daily range): BP systolic 90–104; BP diastolic 47–82
[2021-10-06] MEDS ORDERED: SODIUM CHLORIDE 0.9% 1,000 ML IV ONE (00:30)
[2021-10-06] MEDS ORDERED: HEPARIN 25,000 UNITS PREMIX 250 ML IV PRN ×2 (01:00→21:00)
[2021-10-06] MEDS ORDERED: HEPARIN 5000 UNITS/ML VIAL IV SCH (01:00)
[2021-10-06] MEDS: IPRATROPIUM/ALBUTEROL 0.5-3(2.5)MG/3ML NEB HHN SCH ×4 (01:47→21:00)
[2021-10-06] MEDS: METRONIDAZOLE 500MG TABLET PO SCH ×3 (05:39→22:32)
[2021-10-06] MEDS: FUROSEMIDE 40MG/4ML VIAL IV SCH ×2 (05:39→17:54)
[2021-10-06] MEDS ORDERED: HEPARIN 5000 UNITS/ML VIAL IV PRN ×3 (07:00→21:00)
[2021-10-06] MEDS: SPIRONOLACTONE 25MG TABLET PO SCH (09:15)
[2021-10-06] MEDS: PHYTONADIONE 10MG/ML AMP SUBCUT SCH (09:15)
[2021-10-06] MEDS: PANTOPRAZOLE 40MG DR TABLET PO SCH (09:15)
[2021-10-06] MEDS: LEVOFLOXACIN 500MG TABLET PO SCH (12:04)
[2021-10-06 12:58] LABS: BASOPHILS % 0.3 % (0.0-2.0); EOSINOPHILS % 0.3 % (0.0-5.0); HEMATOCRIT. 37.3 % (42.0-52.0); HEMOGLOBIN. 12.2 g/dL (14.0-18.0); LYMPHOCYTES % 7.1 % (20.0-50.0); MEAN CORPUSCULAR HEMOGLOBIN 32.9 pg (28.0-32.0); MEAN CORPUSCULAR VOLUME 100.8 fL (80.0-94.0); MEAN PLATELET VOLUME 9.8 fl (7.4-10.4); MONOCYTES % 12.7 % (2.0-8.0); NEUTROPHILS % 79.6 % (40.0-76.0); PLATELET 60 x1000/uL (130-400); RED CELL DISTRIBUTION WIDTH 17.9 % (11.6-14.6)
[2021-10-06 13:14] LABS: CHLORIDE 98 mEq/L (98-107)
[2021-10-06 13:24] LABS: INR 2.4; PROTHROMBIN TIME 23.9 sec (9.6-11.0)
[2021-10-06 13:25] LABS: T4 FREE 1.17 ng/dL (0.76-1.46)
[2021-10-06 13:31] LABS: PARTIAL THROMBOPLASTIN TIME > 200.0 sec (23.4-31.0)
[2021-10-06] MEDS ORDERED: MIDODRINE HCL 5MG TABLET PO NR (14:00)
[2021-10-06 16:26] LABS: HEMATOCRIT. 35.9 % (42.0-52.0); HEMOGLOBIN. 11.8 g/dL (14.0-18.0); MEAN CORPUSCULAR VOLUME 100.3 fL (80.0-94.0); MEAN PLATELET VOLUME 9.5 fl (7.4-10.4); PLATELET 57 x1000/uL (130-400); RED BLOOD CELL COUNT 3.58 mill/uL (4.7-6.1); RED CELL DISTRIBUTION WIDTH 17.8 % (11.6-14.6)
[2021-10-06 16:34] LABS: CHLORIDE 99 mEq/L (98-107)
[2021-10-06] MEDS: MIDODRINE HCL 5MG TABLET PO SCH (17:54)
[2021-10-06 18:13] LABS: PLATELET ESTIMATE DECREASED
[2021-10-06] MEDS: GUAIFENESIN 200MG/10ML SUGAR FREE UDC PO PRN (18:37)
[2021-10-06] MEDS ORDERED: HEPARIN 25,000 UNITS in DEXT 5% WATER 245 ML IV PRN (23:00)
[2021-10-06] MEDS: HEPARIN 25,000 UNITS in DEXT 5% WATER 250 ML IV PRN (23:14)
[2021-10-07] VITALS (12 sets, daily range): BP systolic 95–141; BP diastolic 54–89
[2021-10-07] MEDS: METRONIDAZOLE 500MG TABLET PO SCH ×3 (06:29→21:42)
[2021-10-07 07:27] LABS: INR 2.1; PROTHROMBIN TIME 21.1 sec (9.6-11.0)
[2021-10-07 07:53] LABS: CHLORIDE 99 mEq/L (98-107)
[2021-10-07 08:02] LABS: HEMATOCRIT. 34.4 % (42.0-52.0); HEMOGLOBIN. 11.4 g/dL (14.0-18.0); MEAN CORPUSCULAR HEMOGLOBIN 32.9 pg (28.0-32.0); MEAN PLATELET VOLUME 9.5 fl (7.4-10.4); RED BLOOD CELL COUNT 3.47 mill/uL (4.7-6.1); RED CELL DISTRIBUTION WIDTH 17.8 % (11.6-14.6)
[2021-10-07 08:20] LABS: PLATELET 47 x1000/uL (130-400)
[2021-10-07] MEDS: IPRATROPIUM/ALBUTEROL 0.5-3(2.5)MG/3ML NEB HHN SCH ×2 (08:23→14:46)
[2021-10-07] MEDS: FUROSEMIDE 40MG/4ML VIAL IV SCH ×2 (09:09→17:21)
[2021-10-07] MEDS: MIDODRINE HCL 5MG TABLET PO SCH ×3 (09:10→17:21)
[2021-10-07] MEDS: SPIRONOLACTONE 25MG TABLET PO SCH (09:10)
[2021-10-07] MEDS: PANTOPRAZOLE 40MG DR TABLET PO SCH (09:10)
[2021-10-07] MEDS: PHYTONADIONE 10MG/ML AMP SUBCUT SCH (09:12)
[2021-10-07] MEDS ORDERED: MORPHINE SULFATE 2 MG/ML CPJ (NOT FOR IM USE) IV PRN (11:30)
[2021-10-07] MEDS: LEVOFLOXACIN 500MG TABLET PO SCH (11:54)
[2021-10-07 12:05] LABS: PROTHROMBIN TIME 20.6 sec (9.6-11.0)
[2021-10-07 12:07] LABS: PLATELET ESTIMATE MARKEDLY DECREASED
[2021-10-07] MEDS: ACETAMINOPHEN 325MG TABLET PO PRN (17:20)
[2021-10-07 23:13] LABS: HEMATOCRIT. 35.4 % (42.0-52.0); HEMOGLOBIN. 11.8 g/dL (14.0-18.0); MEAN CORPUSCULAR HEMOGLOBIN 32.9 pg (28.0-32.0); MEAN CORPUSCULAR VOLUME 98.4 fL (80.0-94.0); MEAN PLATELET VOLUME 8.9 fl (7.4-10.4); PLATELET 54 x1000/uL (130-400); RED BLOOD CELL COUNT 3.59 mill/uL (4.7-6.1); RED CELL DISTRIBUTION WIDTH 18.3 % (11.6-14.6)
[2021-10-08] VITALS (9 sets, daily range): BP systolic 90–128; BP diastolic 57–83
[2021-10-08] MEDS: HEPARIN 25,000 UNITS in DEXT 5% WATER 250 ML IV PRN (02:44)
[2021-10-08] MEDS: METRONIDAZOLE 500MG TABLET PO SCH ×2 (05:12→15:47)
[2021-10-08] MEDS: FUROSEMIDE 40MG/4ML VIAL IV SCH ×2 (05:13→17:15)
[2021-10-08 05:53] LABS: PLATELET ESTIMATE DECREASED
[2021-10-08 07:00] LABS: HEMATOCRIT. 36.9 % (42.0-52.0); HEMOGLOBIN. 12.1 g/dL (14.0-18.0); MEAN CORPUSCULAR HEMOGLOBIN 32.6 pg (28.0-32.0); MEAN CORPUSCULAR VOLUME 99.2 fL (80.0-94.0); MEAN PLATELET VOLUME 9.3 fl (7.4-10.4); PLATELET 57 x1000/uL (130-400); RED BLOOD CELL COUNT 3.72 mill/uL (4.7-6.1)
[2021-10-08 07:08] LABS: CHLORIDE 99 mEq/L (98-107)
[2021-10-08 07:11] LABS: INR 1.8; PROTHROMBIN TIME 18.9 sec (9.6-11.0)
[2021-10-08] MEDS: PANTOPRAZOLE 40MG DR TABLET PO SCH (07:30)
[2021-10-08 07:37] LABS: PARTIAL THROMBOPLASTIN TIME 77.4 sec (23.4-31.0)
[2021-10-08] MEDS: IPRATROPIUM/ALBUTEROL 0.5-3(2.5)MG/3ML NEB HHN SCH ×2 (08:06→14:33)
[2021-10-08] MEDS: PHYTONADIONE 10MG/ML AMP SUBCUT SCH ×2 (09:00→15:47)
[2021-10-08] MEDS: MIDODRINE HCL 5MG TABLET PO SCH ×3 (09:00→17:00)
[2021-10-08] MEDS: SPIRONOLACTONE 25MG TABLET PO SCH (09:00)
[2021-10-08 11:58] LABS: PLATELET ESTIMATE MARKEDLY DECREASED
[2021-10-08] MEDS ORDERED: PHYTONADIONE 10MG/ML AMP SUBCUT SCH (13:47)
[2021-10-08] MEDS: LEVOFLOXACIN 500MG TABLET PO SCH (15:47)
[2021-10-09] VITALS (22 sets, daily range): BP systolic 81–159; BP diastolic 9–119
[2021-10-09 05:54] LABS: CHLORIDE 100 mEq/L (98-107)
[2021-10-09] MEDS ORDERED: IOHEXOL-300 100 ML BOTTLE ONE (07:37)
[2021-10-09] MEDS ORDERED: LIDOCAINE HCL 1% 10 MG/ML 10ML VIAL ONE ×2 (07:37→10:27)
[2021-10-09] MEDS ORDERED: IOHEXOL-300 50 ML BOTTLE IV ONE (08:03)
[2021-10-09] MEDS: IPRATROPIUM/ALBUTEROL 0.5-3(2.5)MG/3ML NEB HHN SCH ×2 (08:20→12:37)
[2021-10-09] MEDS: MIDODRINE HCL 5MG TABLET PO SCH ×3 (09:45→18:48)
[2021-10-09] MEDS: PANTOPRAZOLE 40MG DR TABLET PO SCH (09:45)
[2021-10-09] MEDS: SPIRONOLACTONE 25MG TABLET PO SCH (09:45)
[2021-10-09] MEDS: FUROSEMIDE 40MG/4ML VIAL IV SCH ×2 (09:45→17:15)
[2021-10-09 10:16] LABS: HEMATOCRIT 37.1 % (42.0-52.0)
[2021-10-09] MEDS ORDERED: SODIUM BICARBONATE 4% (2.4MEQ) 5ML VIAL IV ONE (10:28)
[2021-10-09] MEDS ORDERED: POTASSIUM CHLORIDE 20MEQ TABLET SR PO NR (10:45)
[2021-10-09] MEDS: HEPARIN 25,000 UNITS in DEXT 5% WATER 250 ML IV PRN (19:53)
[2021-10-10] VITALS (13 sets, daily range): BP systolic 81–137; BP diastolic 52–119
[2021-10-10 06:52] LABS: HEMOGLOBIN 11.7 g/dL (14.0-18.0); MEAN CORPUSCULAR HEMOGLOBIN 32.3 pg (28.0-32.0); MEAN CORPUSCULAR VOLUME 99.5 fL (80.0-94.0); PLATELET 52 x1000/uL (130-400); RED BLOOD CELL COUNT 3.62 mill/uL (4.7-6.1); RED CELL DISTRIBUTION WIDTH 18.5 % (11.6-14.6)
[2021-10-10] MEDS: FUROSEMIDE 40MG/4ML VIAL IV SCH ×2 (07:15→17:22)
[2021-10-10] MEDS: SPIRONOLACTONE 25MG TABLET PO SCH (08:40)
[2021-10-10] MEDS: POTASSIUM CHLORIDE 20MEQ TABLET SR PO SCH (08:41)
[2021-10-10] MEDS: PANTOPRAZOLE 40MG DR TABLET PO SCH (08:41)
[2021-10-10] MEDS: MIDODRINE HCL 5MG TABLET PO SCH ×3 (08:41→17:22)
[2021-10-10] MEDS: IPRATROPIUM/ALBUTEROL 0.5-3(2.5)MG/3ML NEB HHN SCH ×3 (09:24→18:00)
[2021-10-10] MEDS: GUAIFENESIN 200MG/10ML SUGAR FREE UDC PO PRN (10:34)
[2021-10-10] MEDS ORDERED: POTASSIUM CHLORIDE 20MEQ TABLET SR PO NR (11:30)
[2021-10-10] MEDS ORDERED: GUAIFENESIN 200MG/10ML SUGAR FREE UDC PO PRN (12:45)
[2021-10-10 13:04] LABS: BG BASE EXCESS 1.3 mmol/L (-2.0-2.0); BG DEOXYHEMOGLOBIN 6.4 % (0.0-5.0); BG HCO3 ACT 24.1 mmol/L (22.0-26.0); BG METHEMOGLOBIN 0.2 % (0.0-1.5); BG OXYGEN SATURATION 93.5 % (92.0-98.5); BG OXYHEMOGLOBIN 92.4 % (94.0-97.0); BG PCO2 32.5 mmHg (35.0-45.0); BG PH 7.488 (7.350-7.450); BG PO2 68.7 mmHg (75.0-100.0); BG SAMPLE SITE RIGHT RADIAL; BG VENT MODE ROOM AIR
[2021-10-10] MEDS: APIXABAN 2.5 MG TABLET PO SCH (17:22)
[2021-10-10] MEDS ORDERED: DOPAMINE 400MG/250ML PREMIX 250 ML IV ONE (19:05)
[2021-10-11] VITALS (10 sets, daily range): BP systolic 99–116; BP diastolic 40–88
[2021-10-11] MEDS: FUROSEMIDE 40MG/4ML VIAL IV SCH ×2 (05:58→06:12)
[2021-10-11 06:35] LABS: CHLORIDE 103 mEq/L (98-107)
[2021-10-11 07:14] LABS: HEMATOCRIT. 37.8 % (42.0-52.0); HEMOGLOBIN. 12.2 g/dL (14.0-18.0); MEAN CORPUSCULAR HEMOGLOBIN 33.3 pg (28.0-32.0); MEAN CORPUSCULAR VOLUME 103.1 fL (80.0-94.0); MEAN PLATELET VOLUME 9.2 fl (7.4-10.4); RED BLOOD CELL COUNT 3.67 mill/uL (4.7-6.1)
[2021-10-11 07:35] LABS: PLATELET 48 x1000/uL (130-400)
[2021-10-11] MEDS: SPIRONOLACTONE 25MG TABLET PO SCH (08:10)
[2021-10-11] MEDS: POTASSIUM CHLORIDE 20MEQ TABLET SR PO SCH (08:10)
[2021-10-11] MEDS: APIXABAN 2.5 MG TABLET PO SCH (08:10)
[2021-10-11] MEDS: MIDODRINE HCL 5MG TABLET PO SCH ×2 (08:11→13:39)
[2021-10-11] MEDS: PANTOPRAZOLE 40MG DR TABLET PO SCH (08:11)
[2021-10-11] MEDS: IPRATROPIUM/ALBUTEROL 0.5-3(2.5)MG/3ML NEB HHN SCH ×2 (08:20→13:11)
[2021-10-11 09:14] LABS: BG BASE EXCESS 0.8 mmol/L (-2.0-2.0); BG CARBOXYHEMOGLOBIN 1.1 % (0.5-1.5); BG DEOXYHEMOGLOBIN 1.6 % (0.0-5.0); BG FRACTION INSPIRED OXYGEN 21; BG HCO3 ACT 21.9 mmol/L (22.0-26.0); BG METHEMOGLOBIN 0.2 % (0.0-1.5); BG OXYGEN SATURATION 98.4 % (92.0-98.5); BG OXYHEMOGLOBIN 97.1 % (94.0-97.0); BG PCO2 25.4 mmHg (35.0-45.0); BG PH 7.553 (7.350-7.450); BG PO2 100.6 mmHg (75.0-100.0); BG SAMPLE SITE RIGHT RADIAL; BG TOTAL HEMOGLOBIN 12.6 g/dL (12.0-18.0); BG VENT MODE ROOM AIR
[2021-10-11 10:44] LABS: PLATELET ESTIMATE MARKEDLY DECREASED
[2021-10-11] MEDS: ACETAMINOPHEN 325MG TABLET PO PRN (11:26)
[2021-10-11] MEDS ORDERED: FUROSEMIDE 40MG TABLET PO NR (12:30)
[2021-10-11] MEDS ORDERED: PROT40 MT (13:21)
[2021-10-11] MEDS ORDERED: FURO-151 MT (13:21)
[2021-10-11] MEDS ORDERED: ALBU90AE INH (13:21)
[2021-10-11] MEDS ORDERED: SPIR25TA6 MT (13:21)
[2021-10-11] MEDS ORDERED: COR3 MT (13:21)
[2021-10-11] MEDS ORDERED: MIDO5TAB4 MT (13:28)
[2021-10-11 13:34] LABS: HEMATOCRIT 34.9 % (42.0-52.0); HEMOGLOBIN 11.6 g/dL (14.0-18.0); MEAN CORPUSCULAR HEMOGLOBIN 33.2 pg (28.0-32.0); MEAN CORPUSCULAR VOLUME 99.6 fL (80.0-94.0); RED BLOOD CELL COUNT 3.51 mill/uL (4.7-6.1); RED CELL DISTRIBUTION WIDTH 18.4 % (11.6-14.6)
[2021-10-11 13:36] LABS: PLATELET 47 x1000/uL (130-400)
[2021-10-11] MEDS ORDERED: FUROSEMIDE 40MG TABLET PO SCH (21:00)
== END 2021-10-11 17:50 | disposition home or self-care (01) | DRG 432 ==
LOC: ER 12:18 → 7EST 14:25 → ENRESERV 14:42 → 5EST 10-05 22:38
PROVIDERS: ADMIT Internal Medicine; ATTEND Internal Medicine
PROC: 5A09357 Assistance with Respiratory Ventilation, Less than 24 Consecutive Hours, Continuous Positive Airway Pressure (ICD-10-PCS; 2021-10-03)
PROC: 30233K1 Transfusion of Nonautologous Frozen Plasma into Peripheral Vein, Percutaneous Approach (ICD-10-PCS; 2021-10-04)
PROC: 02HV33Z Insertion of Infusion Device into Superior Vena Cava, Percutaneous Approach (ICD-10-PCS; principal; 2021-10-05)
PROC: B548ZZA Ultrasonography of Superior Vena Cava, Guidance (ICD-10-PCS; 2021-10-05)
PROC: 0W9G3ZZ Drainage of Peritoneal Cavity, Percutaneous Approach (ICD-10-PCS; 2021-10-09)
PROC: 06H03DZ Insertion of Intraluminal Device into Inferior Vena Cava, Percutaneous Approach (ICD-10-PCS; 2021-10-09)
PROC: B519ZZA Fluoroscopy of Inferior Vena Cava, Guidance (ICD-10-PCS; 2021-10-09)
PROC: B549ZZA Ultrasonography of Inferior Vena Cava, Guidance (ICD-10-PCS; 2021-10-09)
DX: K74.60 Unspecified cirrhosis of liver (principal); I26.99 Other pulmonary embolism without acute cor pulmonale; J18.9 Pneumonia, unspecified organism; I33.0 Acute and subacute infective endocarditis; I82.431 Acute embolism and thrombosis of right popliteal vein; D68.9 Coagulation defect, unspecified; E87.1 Hypo-osmolality and hyponatremia; I31.3 Pericardial effusion (noninflammatory); R18.8 Other ascites; I42.9 Cardiomyopathy, unspecified; D61.818 Other pancytopenia; I50.22 Chronic systolic (congestive) heart failure; I82.623 Acute embolism and thrombosis of deep veins of upper extremity, bilateral; I82.613 Acute embolism and thrombosis of superficial veins of upper extremity, bilateral; R65.10 Systemic inflammatory response syndrome (SIRS) of non-infectious origin without acute organ dysfunction; I11.0 Hypertensive heart disease with heart failure; D69.6 Thrombocytopenia, unspecified; D72.825 Bandemia; F10.10 Alcohol abuse, uncomplicated; Y90.9 Presence of alcohol in blood, level not specified; Z20.822 Contact with and (suspected) exposure to COVID-19; R20.2 Paresthesia of skin; I27.20 Pulmonary hypertension, unspecified; E87.6 Hypokalemia; Z95.810 Presence of automatic (implantable) cardiac defibrillator; Z79.2 Long term (current) use of antibiotics; Z79.899 Other long term (current) drug therapy; Z79.84 Long term (current) use of oral hypoglycemic drugs; Z82.49 Family history of ischemic heart disease and other diseases of the circulatory system; Z95.828 Presence of other vascular implants and grafts; Z79.01 Long term (current) use of anticoagulants; Z86.711 Personal history of pulmonary embolism; Z86.718 Personal history of other venous thrombosis and embolism; R06.03 Acute respiratory distress
CPT/HCPCS: 36415; 36600; 37191; 49083; 71045; 71250; 71275; 76937; 80048; 80053; 80305; 81003; 82040; 82140; 82375; 82550; 82553; 82805; 83615; 83880; 84439; 84443; 84478; 84481; 84484; 85014; 85018; 85025; 85027; 85049; 85379; 86850; 86900; 86927; 87426; 88108; 88312; 93005; 93306; 93923; 93970; 94618; 94640; 94660; 99291; C1725; C1769; C1880; J1265; J1644; J1940; J1956; J3430; J3490; J7040; J7060; P9017; Q9967

== ENCOUNTER 2022-03-18 07:15 | Emergency (ER) | payer OTHER ==
[~2022-03-18] VITALS: Ht 177.8 cm; Wt 86.0 kg
[~2022-03-18 07:15] MED LIST changes: +ALBU90AE INH; -ALD50 PO; -CARV25TA47 PO; +COR3 MT; -DIGO125T PO; +FURO-151 MT; -LEVO250T58 MT; -LOSA50TA3 PO; +MIDO5TAB4 MT; -POTA20TA82 PO; -RIVA10TA PO; +SPIR25TA6 MT; -TADA5TAB PO
[2022-03-18] MEDS ORDERED: IBUPROFEN 400MG TABLET PO ONE (08:30)
[2022-03-18 09:37] LABS: BASOPHILS % 0.6 % (0.0-2.0); EOSINOPHILS % 1.2 % (0.0-5.0); HEMATOCRIT. 32.8 % (42.0-52.0); HEMOGLOBIN. 11.1 g/dL (14.0-18.0); LYMPHOCYTES % 15.3 % (20.0-50.0); MEAN CORPUSCULAR HEMOGLOBIN 32.7 pg (28.0-32.0); MEAN CORPUSCULAR VOLUME 96.4 fL (80.0-94.0); MEAN PLATELET VOLUME 7.5 fl (7.4-10.4); NEUTROPHILS % 70.9 % (40.0-76.0); PLATELET 65 x1000/uL (130-400)
[2022-03-18 09:47] LABS: CHLORIDE 106 mEq/L (98-107)
[2022-03-18 09:48] LABS: CHLORIDE 106 mEq/L (98-107)
[2022-03-18] MEDS ORDERED: IBUP-2028 MT (10:58)
[2022-03-18 12:31] VITALS: BP 127/85
== END 2022-03-18 12:32 | disposition home or self-care (01) ==
LOC: ER 08:04
DX: M79.89 Other specified soft tissue disorders (principal); R60.0 Localized edema; M25.571 Pain in right ankle and joints of right foot; I11.0 Hypertensive heart disease with heart failure; I50.9 Heart failure, unspecified; I49.9 Cardiac arrhythmia, unspecified; Z95.0 Presence of cardiac pacemaker; Z79.899 Other long term (current) drug therapy
CPT/HCPCS: 36415; 71045; 73610; 73630; 80048; 80053; 84550; 85025; 93970; 99285

== ENCOUNTER 2023-01-02 07:26 | Emergency (ER) | payer OTHER ==
[~2023-01-02] VITALS: Ht 177.8 cm; Wt 91.0 kg
[~2023-01-02 07:26] MED LIST changes: +IBUP-2028 MT
[2023-01-02 07:40] VITALS: BP 114/78
[2023-01-02] MEDS ORDERED: NAPR-1176 PO ×3 (08:12→08:20)
== END 2023-01-02 08:22 | disposition home or self-care (01) ==
LOC: ER 07:26
DX: S80.01XA Contusion of right knee, initial encounter (principal); W22.8XXA Striking against or struck by other objects, initial encounter; Y93.01 Activity, walking, marching and hiking; Y92.018 Other place in single-family (private) house as the place of occurrence of the external cause
CPT/HCPCS: 99281; 99283

== ENCOUNTER 2023-01-24 07:47 | Emergency (ER) | payer OTHER ==
[~2023-01-24] VITALS: Ht 177.8 cm; Wt 83.0 kg
[~2023-01-24 07:47] MED LIST changes: +NAPR-1176 PO
[2023-01-24 07:55] VITALS: BP 126/86
[2023-01-24] MEDS ORDERED: KETOROLAC 15MG/ML VIAL IM ONE (08:30)
== END 2023-01-24 08:54 | disposition home or self-care (01) ==
LOC: ER 07:47
DX: R19.00 Intra-abdominal and pelvic swelling, mass and lump, unspecified site (principal)
CPT/HCPCS: 96372; 99283; J1885

== ENCOUNTER 2023-03-14 07:26 | Emergency (ER) | payer OTHER ==
[~2023-03-14] VITALS: Ht 177.8 cm; Wt 93.0 kg
[2023-03-14 08:18] LABS: BASOPHILS % 0.5 % (0.0-2.0); EOSINOPHILS % 1.5 % (0.0-5.0); HEMOGLOBIN. 12.6 g/dL (14.0-18.0); MEAN CORPUSCULAR HEMOGLOBIN 33.1 pg (28.0-32.0); MEAN CORPUSCULAR VOLUME 100.1 fL (80.0-94.0); MEAN PLATELET VOLUME 8.5 fl (7.4-10.4); MONOCYTES % 12.1 % (2.0-8.0); NEUTROPHILS % 70.9 % (40.0-76.0); PLATELET 66 x1000/uL (130-400); RED CELL DISTRIBUTION WIDTH 15.9 % (11.6-14.6)
[2023-03-14 08:28] LABS: CHLORIDE 108 mEq/L (98-107)
[2023-03-14 09:53] LABS: CLARITY URINE CLOUDY (CLEAR); COLOR URINE ORANGE (YELLOW); KETONES URINE NEGATIVE (NEGATIVE); LEUKOCYTE ESTERASE URINE 1+ (NEGATIVE); NITRITE URINE POSITIVE (NEGATIVE); OCCULT BLOOD URINE NEGATIVE (NEGATIVE); PROTEIN URINE 3+ (NEGATIVE); SPECIFIC GRAVITY URINE 1.025 (1.005-1.030)
[2023-03-14] MEDS ORDERED: NITR100C PO (10:16)
[2023-03-14 10:50] VITALS: BP 117/84
== END 2023-03-14 10:55 | disposition home or self-care (01) ==
LOC: ER 07:26
DX: N39.0 Urinary tract infection, site not specified (principal); Z98.890 Other specified postprocedural states
CPT/HCPCS: 36415; 71045; 80053; 81003; 84484; 85025; 93005; 99285; Z7610

== ENCOUNTER 2023-11-19 08:21 | Emergency (ER) | payer OTHER ==
[~2023-11-19] VITALS: Ht 177.8 cm; Wt 91.0 kg
[~2023-11-19 08:21] MED LIST changes: +NITR100C PO
[2023-11-19 08:23] VITALS: BP 128/78; TEMP 98.5; O2SAT 100
[2023-11-19 08:30] VITALS: PULSE 81; RESP 16
[2023-11-19] MEDS ORDERED: DIPH25CA83 MT (09:03)
[2023-11-19] MEDS ORDERED: P20 MT (09:03)
[2023-11-19] MEDS ORDERED: HYDR99LO MT (09:03)
== END 2023-11-19 09:10 | disposition home or self-care (01) ==
LOC: ER 08:21
DX: L30.9 Dermatitis, unspecified (principal); R21 Rash and other nonspecific skin eruption; I25.10 Atherosclerotic heart disease of native coronary artery without angina pectoris; J18.9 Pneumonia, unspecified organism; Z98.890 Other specified postprocedural states
CPT/HCPCS: 99283

== ENCOUNTER 2023-12-05 07:45 | Emergency (ER) | payer OTHER ==
[~2023-12-05] VITALS: Ht 177.8 cm; Wt 100.0 kg
[~2023-12-05 07:45] MED LIST changes: +DIPH25CA83 MT; +HYDR99LO MT; +P20 MT
[2023-12-05 07:48] VITALS: O2SAT 100
[2023-12-05] MEDS ORDERED: POVIDONE-IODINE 10% TOPICAL SOLN 240ML TOP ONE (08:15)
[2023-12-05] MEDS ORDERED: LIDOCAINE HCL 1% 20ML VIAL (Pyxis) INJ INFIL ONE (08:15)
[2023-12-05] MEDS ORDERED: EPIN0.3P3 IM (08:33)
[2023-12-05 08:52] VITALS: BP 114/78; PULSE 71; RESP 18; TEMP 98.7
== END 2023-12-05 08:53 | disposition home or self-care (01) ==
LOC: ER 07:45
DX: I25.10 Atherosclerotic heart disease of native coronary artery without angina pectoris (principal); Z87.01 Personal history of pneumonia (recurrent)
CPT/HCPCS: 99281; 99282

== ENCOUNTER 2023-12-30 14:41 | Emergency (ER) | payer OTHER ==
[~2023-12-30] VITALS: Ht 177.8 cm; Wt 84.0 kg
[~2023-12-30 14:41] MED LIST changes: +EPIN0.3P3 IM
[2023-12-30 14:53] VITALS: BP 125/75; PULSE 100; RESP 15; TEMP 98.6; O2SAT 97
[2023-12-30 15:56] LABS: HEMATOCRIT. 41.4 % (42.0-52.0); HEMOGLOBIN. 14.1 g/dL (14.0-18.0); MEAN CORPUSCULAR HEMOGLOBIN 33.2 pg (28.0-32.0); MEAN CORPUSCULAR VOLUME 97.5 fL (80.0-94.0); MEAN PLATELET VOLUME 7.5 fl (7.4-10.4); PLATELET 93 x1000/uL (130-400); RED BLOOD CELL COUNT 4.25 mill/uL (4.7-6.1); RED CELL DISTRIBUTION WIDTH 14.5 % (11.6-14.6); WHITE BLOOD COUNT 8.5 x1000/uL (4.5-11.0)
[2023-12-30 15:57] LABS: DIFFERENTIAL COMMENT 1
[2023-12-30 16:05] LABS: INR 1.1; PROTHROMBIN TIME 12.5 sec (9.6-11.0)
[2023-12-30 16:11] LABS: ALANINE AMINOTRANSFERASE 31 IU/L (10-49); ALBUMIN 4.6 g/dL (3.2-4.8); ASPARTATE AMINOTRANSFERASE 46 IU/L (<34); BILIRUBIN TOTAL 3.5 mg/dL (0.1-1.0); CALCIUM 9.4 mg/dL (8.7-10.4); CARBON DIOXIDE 21 mEq/L (21-32); CHLORIDE 101 mEq/L (98-107); CREATININE 1.2 mg/dL (0.6-1.3); GLUCOSE 107 mg/dL (70-105); POTASSIUM 4.1 mEq/L (3.5-5.1); PROTEIN TOTAL 8.2 g/dL (6.0-8.3); SODIUM 131 mEq/L (136-145); TROPONIN I HIGH SENSITIVITY 18 ng/L (3.0-53); UREA NITROGEN BLOOD 18 mg/dL (9-23)
[2023-12-30 16:26] LABS: PLATELET ESTIMATE DECREASED
[2023-12-30] MEDS ORDERED: ASPIRIN 325MG EC TABLET PO ONE (18:00)
[2023-12-31] MEDS ORDERED: ELIQUIS (14:15)
== END 2023-12-30 21:09 | disposition left against medical advice (07) ==
LOC: ER 14:41 → EDBEDREQ 17:25 → CANBEDREQ 21:07 → ER 21:09
DX: R06.02 Shortness of breath (principal); I25.10 Atherosclerotic heart disease of native coronary artery without angina pectoris; J18.8 Other pneumonia, unspecified organism; Z98.890 Other specified postprocedural states
CPT/HCPCS: 36415; 71045; 80053; 83880; 84484; 85025; 93005; 99285

== ENCOUNTER 2023-12-31 14:13 | Inpatient (IN) | payer OTHER ==
[~2023-12-31] VITALS: Ht 177.8 cm; Wt 69.9 kg
[2023-12-31] VITALS (15 sets, daily range): BP systolic 0–95; BP diastolic 0–69; PULSE 40–121; RESP 18–20; TEMP 89.1–89.7; O2SAT 0
[2023-12-31] MEDS ORDERED: ELIQUIS (14:15)
[2023-12-31] MEDS ORDERED: DOBUTAMINE 250MG PREMIX 250 ML IV ONE (14:30)
[2023-12-31] MEDS: NOREPINEPHRINE 8MG/250ML PMX 250 ML IV PRN (15:00)
[2023-12-31 15:16] LABS: BG BASE EXCESS -13.5 mmol/L (-2.0-2.0); BG CARBOXYHEMOGLOBIN 0.5 % (0.5-1.5); BG FRACTION INSPIRED OXYGEN 100; BG HCO3 ACT 14.6 mmol/L (22.0-26.0); BG METHEMOGLOBIN 0.3 % (0.0-1.5); BG OXYHEMOGLOBIN 98.2 % (94.0-97.0); BG PH 7.159 (7.350-7.450); BG PO2 232.5 mmHg (75.0-100.0); BG SAMPLE SITE RIGHT BRACHIAL; BG TOTAL HEMOGLOBIN 13.2 g/dL (12.0-18.0); BG VENT MODE VENT - PRVC
[2023-12-31 15:20] LABS: HEMATOCRIT. 37.9 % (42.0-52.0); HEMOGLOBIN. 12.3 g/dL (14.0-18.0); MEAN CORPUSCULAR HEMOGLOBIN 33.1 pg (28.0-32.0); MEAN CORPUSCULAR HGB CONC 32.5 g/dL (31.0-37.0); MEAN CORPUSCULAR VOLUME 101.7 fL (80.0-94.0); MEAN PLATELET VOLUME 8.8 fl (7.4-10.4); PLATELET 82 x1000/uL (130-400); RED BLOOD CELL COUNT 3.73 mill/uL (4.7-6.1); RED CELL DISTRIBUTION WIDTH 14.8 % (11.6-14.6); WHITE BLOOD COUNT 11.2 x1000/uL (4.5-11.0)
[2023-12-31 15:21] LABS: DIFFERENTIAL COMMENT 1
[2023-12-31 15:28] LABS: ALANINE AMINOTRANSFERASE 252 IU/L (10-49); ALBUMIN 3.4 g/dL (3.2-4.8); ASPARTATE AMINOTRANSFERASE 671 IU/L (<34); BILIRUBIN TOTAL 3.4 mg/dL (0.1-1.0); CARBON DIOXIDE 20 mEq/L (21-32); CHLORIDE 101 mEq/L (98-107); CREATININE 2.9 mg/dL (0.6-1.3); GLUCOSE 58 mg/dL (70-105); POTASSIUM 4.4 mEq/L (3.5-5.1); PROTEIN TOTAL 6.2 g/dL (6.0-8.3); SODIUM 139 mEq/L (136-145); UREA NITROGEN BLOOD 35 mg/dL (9-23)
[2023-12-31 15:29] LABS: ETHANOL BLOOD < 10 mg/dL (<10)
[2023-12-31 15:30] LABS: CALCIUM 14.5 mg/dL (8.7-10.4); TROPONIN I HIGH SENSITIVITY 307 ng/L (3.0-53)
[2023-12-31] MEDS ORDERED: VASOPRESSIN 20 UNIT in SODIUM CHLORIDE 0.9% 99 ML IV PRN (15:30)
[2023-12-31] MEDS: DOBUTAMINE 250MG PREMIX 250 ML IV ONE (15:30)
[2023-12-31] MEDS ORDERED: EPINEPHRINE 10 MG in SODIUM CHLORIDE 0.9% 240 ML IV PRN ×2 (15:30→23:24)
[2023-12-31] MEDS: VASOPRESSIN 20 UNIT in SODIUM CHLORIDE 0.9% 99 ML IV PRN (15:59)
[2023-12-31] MEDS: EPINEPHRINE 10 MG in SODIUM CHLORIDE 0.9% 240 ML IV PRN (16:00)
[2023-12-31 16:02] LABS: PLATELET ESTIMATE DECREASED
[2023-12-31] MEDS ORDERED: PHENYLEPHRINE 50MG/250ML PMX 250 ML IV PRN (16:15)
[2023-12-31 16:23] LABS: INR 1.4; PARTIAL THROMBOPLASTIN TIME 40.4 sec (23.4-31.0); PROTHROMBIN TIME 15.6 sec (9.6-11.0)
[2023-12-31 16:28] LABS: TROPONIN I HIGH SENSITIVITY 724 ng/L (3.0-53)
[2023-12-31 16:29] LABS: LACTIC ACID 12.8 mmol/L (0.4-2.0)
[2023-12-31] MEDS: PHENYLEPHRINE 50MG/250ML PMX 250 ML IV PRN (16:50)
[2023-12-31] MEDS: AMIODARONE 150MG/100ML PREMIX 100 ML IV ONE (17:23)
[2023-12-31] MEDS: DEXTROSE 50% WATER 50ML SYRINGE IV ONE (18:55)
[2023-12-31] MEDS: DEXT 5%/0.9% NACL 1,000 ML IV ONE (19:17)
[2023-12-31] MEDS ORDERED: IOHEXOL-350 100 ML BOTTLE ONE (19:57)
[2023-12-31] MEDS ORDERED: SODIUM CHLORIDE 0.9% 1,000 ML IV ONE (20:15)
[2023-12-31] MEDS ORDERED: PIPERACILLIN/TAZO 3.375G/50ML 50 ML IV SCH (22:00)
[2023-12-31] MEDS: PIPERACILLIN/TAZO 3.375G/50ML 50 ML IV SCH (22:48)
[2023-12-31] MEDS: VANCOMYCIN 1,750 MG in DEXT 5% WATER 500 ML IV NR (22:48)
[2023-12-31] MEDS ORDERED: NOREPINEPHRINE 32 MG in DEXT 5% WATER 218 ML IV PRN (23:15)
[2023-12-31] MEDS ORDERED: DOPAMINE 800MG PREMIX (DOUBLE) 250 ML IV PRN (23:15)
[2023-12-31] MEDS ORDERED: DOBUTAMINE 500MG PREMIX 250 ML IV PRN (23:15)
[2023-12-31] MEDS ORDERED: PHENYLEPHRINE 100 MG in DEXT 5% WATER 240 ML IV PRN (23:15)
[2023-12-31] MEDS: HYDROCORTISONE SOD SUCCINATE 250 MG/2 ML VIAL IV NR (23:47)
[2024-01-01 00:03] VITALS: BP 104/82; PULSE 126; RESP 32
[2024-01-01 00:12] VITALS: BP 56/12; PULSE 0; RESP 35
[2024-01-01 00:24] VITALS: BP 62/11; PULSE 39; RESP 32
[2024-01-01 00:30] VITALS: BP 47/28; PULSE 0; RESP 23
[2024-01-01 00:33] VITALS: BP 82/44; PULSE 41; RESP 17
[2024-01-01] MEDS ORDERED: PANTOPRAZOLE SODIUM 40 MG/VIAL IV SCH (09:00)
== END 2024-01-01 01:08 | DRG 208 ==
LOC: ER 14:13 → MICUSO 16:20 → EDBEDREQ 16:29 → EDBEDREQTM 16:29
PROVIDERS: ADMIT Internal Medicine; ATTEND Internal Medicine
PROC: 06HY33Z Insertion of Infusion Device into Lower Vein, Percutaneous Approach (ICD-10-PCS; principal; 2023-12-31)
PROC: 5A1935Z Respiratory Ventilation, Less than 24 Consecutive Hours (ICD-10-PCS; 2023-12-31)
PROC: B54BZZA Ultrasonography of Right Lower Extremity Veins, Guidance (ICD-10-PCS; 2023-12-31)
PROC: 5A12012 Performance of Cardiac Output, Single, Manual (ICD-10-PCS; 2023-12-31)
PROC: 0BH17EZ Insertion of Endotracheal Airway into Trachea, Via Natural or Artificial Opening (ICD-10-PCS; 2023-12-31)
DX: J96.01 Acute respiratory failure with hypoxia (principal); I50.23 Acute on chronic systolic (congestive) heart failure; J18.9 Pneumonia, unspecified organism; E87.20 Acidosis, unspecified; I47.20 Ventricular tachycardia, unspecified; N17.9 Acute kidney failure, unspecified; R18.8 Other ascites; R57.9 Shock, unspecified; I11.0 Hypertensive heart disease with heart failure; I46.9 Cardiac arrest, cause unspecified; D69.6 Thrombocytopenia, unspecified; E66.9 Obesity, unspecified; E83.52 Hypercalcemia; I25.10 Atherosclerotic heart disease of native coronary artery without angina pectoris; Z86.711 Personal history of pulmonary embolism; Z86.718 Personal history of other venous thrombosis and embolism; Z95.810 Presence of automatic (implantable) cardiac defibrillator; Z79.899 Other long term (current) drug therapy; Z68.22 Body mass index [BMI] 22.0-22.9, adult; Z82.49 Family history of ischemic heart disease and other diseases of the circulatory system
CPT/HCPCS: 31500; 36415; 36600; 71045; 71275; 80053; 80320; 82375; 82805; 82962; 83605; 83880; 84484; 85025; 86850; 86900; 92950; 93005; 94002; 99291; 99292; J0282; J1250; J1265; J1720; J2370; J2543; J3370; J3490; J7030; J7042; J7050; J7060; Q9967; G0480